=== PATIENT | male | born 1965 | race Caucasian/White ===

== ENCOUNTER → 2023-11-02 12:31 | Outpatient (REF) | payer OTHER, SELFPAY | LOC: PAVMRI 12:31 | PROVIDERS: ATTENDING PHYSICIAN Podiatrist Foot & Ankle Surgery; FAMILY PHYSICIAN Internal Medicine | DX: M79.89 Other specified soft tissue disorders (principal); M12.20 Villonodular synovitis (pigmented), unspecified site | CPT/HCPCS: 73720; A9575 ==

== ENCOUNTER 2023-12-16 18:44 | Day surgery (SDC) | payer OTHER, SELFPAY ==
[2023-12-16] VITALS (8 sets, daily range): BP systolic 124–165; BP diastolic 51–92; BMI 31.0
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
[2023-12-16] MEDS: ADACEL 0.5 ML IM (17:34)
[2023-12-16] MEDS: ANCEF 10 IV (18:29)
[2023-12-16] MEDS: STERILE WATER FOR INJECTION 20 ML IV (20:34)
[2023-12-16] MEDS: ROCEPHIN 2000 MG IV (20:35)
[2023-12-16] MEDS: TYLENOL 650 MG PO (20:35)
[2023-12-16] MEDS: ROXICODONE 5 MG PO (20:37)
== END 2023-12-16 21:10 | disposition home or self-care (01) ==
LOC: SDS 18:44
PROVIDERS: ATTENDING PHYSICIAN Orthopaedic Surgery; EMERGENCY PHYSICIAN Emergency Medicine; FAMILY PHYSICIAN Internal Medicine
DX: S82.092B Other fracture of left patella, initial encounter for open fracture type I or II (principal); S81.012A Laceration without foreign body, left knee, initial encounter; S52.692A Other fracture of lower end of left ulna, initial encounter for closed fracture; S62.522A Displaced fracture of distal phalanx of left thumb, initial encounter for closed fracture; V19.9XXA Pedal cyclist (driver) (passenger) injured in unspecified traffic accident, initial encounter; Y93.55 Activity, bike riding
CPT/HCPCS: 27524; 11012; 27380; 73110; 73130; 73564; 73700; 90471; 90715; 96374; 99285